=== PATIENT | male | born 1995 | race Caucasian/White ===

== ENCOUNTER 2024-06-23 21:17 | Emergency (ER) | payer BC ==
[~2024-06-23] VITALS: Ht 190.5 cm; Wt 95.5 kg
[2024-06-23 21:40] LABS: HEMATOCRIT 45.9 % (42.0-52.0); HEMOGLOBIN 16.4 g/dl (13.5-17.5); MEAN CORPUSCULAR HEMOGLOBIN 30.3 pg (27.0-33.0); MEAN CORPUSCULAR HGB CONC 35.7 g/dl (32.0-36.5); MEAN CORPUSCULAR VOLUME 84.7 fl (80.0-96.0); PLATELET COUNT, AUTOMATED 154 10^3/uL (150-450); RED BLOOD COUNT 5.42 10^6/uL (4.30-6.10); WHITE BLOOD COUNT 11.5 10^3/uL (4.0-10.0)
[2024-06-23 22:06] LABS: CK-MB VALUE MASS 2.5 NG/ML (<3.6)
[2024-06-23 22:07] LABS: BLOOD UREA NITROGEN 18 MG/DL (9-23); CALCIUM LEVEL 9.4 MG/DL (8.5-10.1); CARBON DIOXIDE LEVEL 29 MMOL/L (20-31); CHLORIDE LEVEL 102 MMOL/L (98-107); CPK CREATINE PHOSPHOKINASE 296 U/L (46-171); CREATININE FOR GFR 1.05 MG/DL (0.70-1.30); GLOMERULAR FILTRATION RATE > 90.0 (>60); GLUCOSE, FASTING 98 MG/DL (60-100); MB/CK RELATIVE INDEX 0.84 (< OR =4); POTASSIUM SERUM 3.8 MMOL/L (3.5-5.1); SODIUM LEVEL 140 MMOL/L (136-145)
[2024-06-24 03:45] VITALS: TEMP 98
[2024-06-24] MEDS ORDERED: HYDR-643 PO (04:15)
[2024-06-24 04:30] VITALS: BP 138/80; O2SAT 97
== END 2024-06-24 04:49 | disposition home or self-care (01) ==
LOC: M ED 21:17
DX: F41.9 Anxiety disorder, unspecified (principal); R07.9 Chest pain, unspecified; R06.02 Shortness of breath; J30.2 Other seasonal allergic rhinitis